=== PATIENT | female | born 1980 | race Caucasian/White ===

== ENCOUNTER 2016-12-14 19:40 | Emergency (ER) | payer OTHER ==
[2016-12-14 20:23] VITALS: BP 143/71
== END 2016-12-14 20:23 | disposition home or self-care (01) ==
LOC: ED 19:40
DX: T17.1XXA Foreign body in nostril, initial encounter (principal); X58.XXXA Exposure to other specified factors, initial encounter; Y93.89 Activity, other specified; Y99.8 Other external cause status; Y92.89 Other specified places as the place of occurrence of the external cause

== ENCOUNTER 2017-02-08 21:13 | Emergency (ER) | payer OTHER ==
[2017-02-09 01:33] VITALS: BP 132/74
== END 2017-02-09 01:33 | disposition home or self-care (01) ==
LOC: ED 21:13
DX: J06.9 Acute upper respiratory infection, unspecified (principal); H92.02 Otalgia, left ear; K08.89 Other specified disorders of teeth and supporting structures

== ENCOUNTER 2017-05-15 11:52 | Emergency (ER) | payer OTHER ==
[~2017-05-15] VITALS: Ht 154.9 cm; Wt 85.0 kg
[2017-05-15 12:16] VITALS: BP 142/95
== END 2017-05-15 14:21 | disposition home or self-care (01) ==
LOC: ED 11:52
DX: B36.9 Superficial mycosis, unspecified (principal); R03.0 Elevated blood-pressure reading, without diagnosis of hypertension

== ENCOUNTER 2017-08-30 04:14 | Inpatient (IN) | payer OTHER ==
[~2017-08-30] VITALS: Ht 152.4 cm; Wt 76.2 kg
[2017-08-30 05:21] LABS: BASOPHIL % 1.2 % (0-2); PLATELET COUNT 158 x10^3mcL (130-400); RED CELL DISTRIBUTION WIDTH 13.8 % (11.5-14.5)
[2017-08-30 05:32] LABS: CALCIUM 8.3 mg/dL (8.5-10.1); CARBON DIOXIDE 24.7 mmol/L (21-32); CHLORIDE SERUM 103 mmol/L (98-107); CREATININE SERUM 0.6 mg/dL (0.6-1.0); GFR1 > 60 mL/min; GLUCOSE SERUM 284 mg/dL (74-106); POTASSIUM SERUM 3.7 mmol/L (3.5-5.1); SODIUM SERUM 137 mmol/L (136-145)
[2017-08-30] MEDS ORDERED: AMOXICILLIN500 MG PO (07:39)
[2017-08-30] MEDS ORDERED: MAPAP500 M2 PO (07:40)
[2017-08-30 09:40] LABS: MAGNESIUM 2.1 mg/dL (1.8-2.4)
[2017-08-30 09:50] LABS: FREE T4 1.21 ng/dL (0.76-1.46); FREE THYROXINE INDEX 3.7 ug/dL (1.4-4.5); T3 TOTAL 1.36 ng/mL; T4(THYROXINE) 11.1 ug/dL (4.7-13.3)
[2017-08-30 09:55] VITALS: BP 134/86
[2017-08-30 09:58] LABS: CHOLESTEROL/HDL RATIO 5.2
[2017-08-30 13:00] VITALS: BP 121/79; BP 122/83
[2017-08-30 14:27] LABS: UA SPECIFIC GRAVITY 1.025 (1.005-1.035); microscopic required? YES; urine erythrocyte 1+ (NEGATIVE)
[2017-08-30 14:57] LABS: AMPHETAMINE QUAL UR NONE DETECTED (NEG <=1000)
[2017-08-30 17:30] VITALS: BP 124/80
[2017-08-30 18:57] VITALS: Ht 152.4 cm; Wt 76.2 kg
[2017-08-30 20:58] VITALS: BP 114/57
[2017-08-31 05:06] VITALS: BP 131/80
[2017-08-31 06:25] LABS: CALCIUM 8.8 mg/dL (8.5-10.1); CHLORIDE SERUM 104 mmol/L (98-107); CREATININE SERUM 0.6 mg/dL (0.6-1.0); GFR1 > 60 mL/min; GLUCOSE SERUM 167 mg/dL (74-106); MAGNESIUM 2.1 mg/dL (1.8-2.4); PHOSPHOROUS 3.7 mg/dL (2.5-4.9); SODIUM SERUM 141 mmol/L (136-145)
[2017-08-31 06:48] LABS: POTASSIUM SERUM 2.9 mmol/L (3.5-5.1)
[2017-08-31 06:50] LABS: BASOPHIL % 0.6 % (0-2); PLATELET COUNT 187 x10^3mcL (130-400)
[2017-08-31 08:52] VITALS: BP 115/74
[2017-08-31 12:14] VITALS: BP 113/70
[2017-08-31 16:29] VITALS: BP 110/77
[2017-08-31 20:58] VITALS: BP 126/81
[2017-09-01 05:11] VITALS: BP 115/77
[2017-09-01 06:54] LABS: BASOPHIL % 0.6 % (0-2); PLATELET COUNT 162 x10^3mcL (130-400); RED CELL DISTRIBUTION WIDTH 14.3 % (11.5-14.5)
[2017-09-01 07:21] LABS: CALCIUM 8.3 mg/dL (8.5-10.1); CARBON DIOXIDE 25.5 mmol/L (21-32); CHLORIDE SERUM 106 mmol/L (98-107); CREATININE SERUM 0.6 mg/dL (0.6-1.0); GFR1 > 60 mL/min; GLUCOSE SERUM 178 mg/dL (74-106); POTASSIUM SERUM 3.6 mmol/L (3.5-5.1); SODIUM SERUM 139 mmol/L (136-145)
[2017-09-01] MEDS ORDERED: LAC PO (08:34)
[2017-09-01] MEDS ORDERED: CLEOCIN HCL300 MG PO (08:34)
[2017-09-01 09:28] VITALS: BP 125/77
[2017-09-01] MEDS ORDERED: GLIPIZIDE5 M2 PO (09:33)
[2017-09-01] MEDS ORDERED: METFORMIN500 M1 PO (09:34)
[2017-09-01 11:16] VITALS: BP 125/77
== END 2017-09-01 12:45 | disposition home or self-care (01) | DRG 383 ==
LOC: ED 04:14 → DU 07:22 → MU 08-31 10:40
PROVIDERS: Emergency Medicine; Family Medicine
DX: L03.211 Cellulitis of face (principal); E11.65 Type 2 diabetes mellitus with hyperglycemia; E78.5 Hyperlipidemia, unspecified; E87.6 Hypokalemia; R31.9 Hematuria, unspecified; E83.39 Other disorders of phosphorus metabolism; K04.7 Periapical abscess without sinus; Z79.84 Long term (current) use of oral hypoglycemic drugs; Z87.891 Personal history of nicotine dependence; Z88.5 Allergy status to narcotic agent; Z88.8 Allergy status to other drugs, medicaments and biological substances; Z81.3 Family history of other psychoactive substance abuse and dependence; Z23 Encounter for immunization
CPT/HCPCS: 83880; 84439; 90658; J1100; J1885; J2270; J3480; J3490; J7030; Q0092; Q9967

== ENCOUNTER 2018-01-27 19:44 | Emergency (ER) | payer OTHER ==
[~2018-01-27] VITALS: Ht 152.4 cm; Wt 78.9 kg
[~2018-01-27 19:44] MED LIST: AMOXICILLIN500 MG PO; CLEOCIN HCL300 MG PO; GLIPIZIDE5 M2 PO; LAC PO; MAPAP500 M2 PO; METFORMIN500 M1 PO
[2018-01-27 19:48] VITALS: Ht 152.4 cm; Wt 78.9 kg
[2018-01-27 22:35] VITALS: BP 167/87
== END 2018-01-27 22:35 | disposition home or self-care (01) ==
LOC: ED 19:44
DX: S02.5XXA Fracture of tooth (traumatic), initial encounter for closed fracture (principal); E11.9 Type 2 diabetes mellitus without complications; Z88.5 Allergy status to narcotic agent; X58.XXXA Exposure to other specified factors, initial encounter; Y93.89 Activity, other specified; Y92.89 Other specified places as the place of occurrence of the external cause; Y99.8 Other external cause status

== ENCOUNTER 2018-01-29 04:32 | Emergency (ER) | payer OTHER ==
[~2018-01-29] VITALS: Ht 154.9 cm; Wt 79.4 kg
[2018-01-29 04:43] VITALS: Ht 154.9 cm; Wt 79.4 kg
[2018-01-29 05:28] VITALS: BP 138/93
== END 2018-01-29 05:28 | disposition home or self-care (01) ==
LOC: ED 04:32
DX: K08.89 Other specified disorders of teeth and supporting structures (principal)
CPT/HCPCS: J0696; J1885

== ENCOUNTER 2018-05-21 20:34 | Emergency (ER) | payer OTHER ==
[~2018-05-21] VITALS: Ht 154.9 cm; Wt 78.5 kg
[2018-05-21 20:52] VITALS: Ht 154.9 cm; Wt 78.5 kg
[2018-05-21 22:26] VITALS: BP 142/109
== END 2018-05-21 22:26 | disposition home or self-care (01) ==
LOC: ED 20:34
DX: D17.0 Benign lipomatous neoplasm of skin and subcutaneous tissue of head, face and neck (principal); Z88.5 Allergy status to narcotic agent
CPT/HCPCS: J1885

== ENCOUNTER 2018-11-15 05:54 | Emergency (ER) | payer OTHER ==
[2018-11-15 06:43] LABS: BASOPHIL % 0.6 % (0-2); PLATELET COUNT 187 x10^3mcL (130-400); RED CELL DISTRIBUTION WIDTH 13.6 % (11.5-14.5)
[2018-11-15 06:47] LABS: CALCIUM 8.5 mg/dL (8.5-10.1); CARBON DIOXIDE 26.6 mmol/L (21-32); CHLORIDE SERUM 100 mmol/L (98-107); CREATININE SERUM 0.8 mg/dL (0.6-1.0); GFR1 > 60 mL/min; GLUCOSE SERUM 376 mg/dL (74-106); POTASSIUM SERUM 3.6 mmol/L (3.5-5.1); SODIUM SERUM 136 mmol/L (136-145)
[2018-11-15 06:53] LABS: ALBUMIN 3.7 g/dL (3.4-5.0); ALKALINE PHOSPHATASE 93 U/L (46-116); ALT/SGPT 53 U/L (14-59); AST/SGOT 22 U/L (15-37); BILIRUBIN TOTAL 0.9 mg/dL (0.20-1.00); TOTAL PROTEIN, SERUM 7.7 g/dL (6.4-8.2)
[2018-11-15 08:35] VITALS: BP 128/86
== END 2018-11-15 09:18 | disposition home or self-care (01) ==
LOC: ED 05:54
PROVIDERS: Emergency Medicine
DX: E11.9 Type 2 diabetes mellitus without complications (principal); B37.3 Candidiasis of vulva and vagina; R19.7 Diarrhea, unspecified; F41.9 Anxiety disorder, unspecified; Z88.5 Allergy status to narcotic agent
CPT/HCPCS: 82962; J7030

== ENCOUNTER 2019-01-22 09:12 | Emergency (ER) | payer OTHER ==
[~2019-01-22] VITALS: Ht 162.6 cm; Wt 76.2 kg
[2019-01-22 09:16] VITALS: BP 138/84; Ht 162.6 cm; Wt 76.2 kg
== END 2019-01-22 10:35 | disposition home or self-care (01) ==
LOC: ED 09:12
DX: S63.502A Unspecified sprain of left wrist, initial encounter (principal); S53.402A Unspecified sprain of left elbow, initial encounter; E11.9 Type 2 diabetes mellitus without complications; F41.9 Anxiety disorder, unspecified; Z88.6 Allergy status to analgesic agent; W01.0XXA Fall on same level from slipping, tripping and stumbling without subsequent striking against object, initial encounter; Y93.89 Activity, other specified; Y92.89 Other specified places as the place of occurrence of the external cause; Y99.8 Other external cause status
CPT/HCPCS: A4570; Q0092; Q0162

== ENCOUNTER 2019-07-23 22:11 | Emergency (ER) | payer OTHER ==
[~2019-07-23] VITALS: Ht 154.9 cm; Wt 71.2 kg
[2019-07-23 22:19] VITALS: Ht 154.9 cm; Wt 71.2 kg
[2019-07-23 23:29] LABS: BASOPHIL % 0.7 % (0-2); PLATELET COUNT 180 x10^3mcL (130-400); RED CELL DISTRIBUTION WIDTH 13.9 % (11.5-14.5)
[2019-07-23 23:56] LABS: ALBUMIN 3.5 g/dL (3.4-5.0); ALKALINE PHOSPHATASE 154 U/L (46-116); ALT/SGPT 26 U/L (14-59); AST/SGOT 2 U/L (15-37); BILIRUBIN TOTAL 0.69 mg/dL (0.20-1.00); CALCIUM 9.1 mg/dL (8.5-10.1); CHLORIDE SERUM 95 mmol/L (98-107); CREATININE SERUM 0.8 mg/dL (0.6-1.0); GFR1 > 60 mL/min; LIPASE 192 IU/L (73-393); MAGNESIUM 2.1 mg/dL (1.8-2.4); POTASSIUM SERUM 3.7 mmol/L (3.5-5.1); SODIUM SERUM 130 mmol/L (136-145); TOTAL PROTEIN, SERUM 7.5 g/dL (6.4-8.2)
[2019-07-24] LABS: CARBON DIOXIDE 26.2 mmol/L (21-32)
[2019-07-24 00:02] LABS: GLUCOSE SERUM 598 mg/dL (74-106)
[2019-07-24 02:06] VITALS: BP 120/72
== END 2019-07-24 02:06 | disposition home or self-care (01) ==
LOC: ED 22:11
PROVIDERS: Emergency Medicine
DX: E11.65 Type 2 diabetes mellitus with hyperglycemia (principal); E11.9 Type 2 diabetes mellitus without complications; F41.9 Anxiety disorder, unspecified; Z88.5 Allergy status to narcotic agent
CPT/HCPCS: 36600; 82962; J1815; J2405; J7030; J7040; Q0092

== ENCOUNTER 2019-07-26 16:44 | Emergency (ER) | payer OTHER ==
[~2019-07-26] VITALS: Ht 154.9 cm; Wt 70.8 kg
[2019-07-26 16:50] VITALS: Ht 154.9 cm; Wt 70.8 kg
[2019-07-26 17:59] LABS: BASOPHIL % 0.6 % (0-2); PLATELET COUNT 185 x10^3mcL (130-400); RED CELL DISTRIBUTION WIDTH 13.7 % (11.5-14.5)
[2019-07-26 18:18] LABS: CALCIUM 8.6 mg/dL (8.5-10.1); CARBON DIOXIDE 27.5 mmol/L (21-32); CHLORIDE SERUM 99 mmol/L (98-107); CREATININE SERUM 0.7 mg/dL (0.6-1.0); GFR1 > 60 mL/min; GLUCOSE SERUM 434 mg/dL (74-106); POTASSIUM SERUM 3.5 mmol/L (3.5-5.1); SODIUM SERUM 134 mmol/L (136-145)
[2019-07-26 18:27] LABS: microscopic required? YES; urine erythrocyte 3+ (NEGATIVE)
[2019-07-26 18:34] LABS: ALBUMIN 3.5 g/dL (3.4-5.0); ALKALINE PHOSPHATASE 120 U/L (46-116); ALT/SGPT 26 U/L (14-59); AST/SGOT 13 U/L (15-37); BILIRUBIN TOTAL 0.6 mg/dL (0.20-1.00); TOTAL PROTEIN, SERUM 7.3 g/dL (6.4-8.2)
[2019-07-26 20:01] VITALS: BP 122/74
== END 2019-07-26 20:01 | disposition home or self-care (01) ==
LOC: ED 16:44
PROVIDERS: Emergency Medicine
DX: E11.65 Type 2 diabetes mellitus with hyperglycemia (principal); Z88.5 Allergy status to narcotic agent
CPT/HCPCS: 82962; J1815; J2405; Q0092

== ENCOUNTER 2019-09-21 05:11 | Emergency (ER) | payer OTHER ==
[~2019-09-21] VITALS: Ht 154.9 cm; Wt 68.6 kg
[2019-09-21 05:18] VITALS: Ht 154.9 cm; Wt 68.6 kg
[2019-09-21 09:34] VITALS: BP 154/75
== END 2019-09-21 09:34 | disposition home or self-care (01) ==
LOC: ED 05:11
DX: K02.9 Dental caries, unspecified (principal); K04.7 Periapical abscess without sinus; E11.9 Type 2 diabetes mellitus without complications; Z88.5 Allergy status to narcotic agent
CPT/HCPCS: 82962; J0690

== ENCOUNTER 2020-02-04 23:24 | Emergency (ER) | payer OTHER ==
[~2020-02-04] VITALS: Ht 154.9 cm; Wt 67.6 kg
[2020-02-04 23:29] VITALS: BP 136/87
== END 2020-02-05 02:05 | disposition left against medical advice (07) ==
LOC: ED 23:24
DX: Z53.21 Procedure and treatment not carried out due to patient leaving prior to being seen by health care provider (principal)